=== PATIENT | female | born 1945 | race Caucasian/White ===

== ENCOUNTER 2019-01-28 11:31 | Emergency (ER) | payer MEDICARE ==
[2019-01-28 11:44] VITALS: BP 124/70
--- NOTE | 2019-01-28 12:16 | UC ---
Shortness of Breath HPI - HPI Summary HPI Summary: 73 yo female with dyspnea x 2 days markedly worse with exertion no CP hx lymphoma - History of Current Complaint Chief Complaint: UCRespiratory Stated Complaint: SOB,WEAK Time Seen by Provider: 01/28/19 11:50 Hx Obtained From: Patient Onset/Duration: Gradual Onset, Lasting Days Timing: Constant Current Severity: Mild Dyspnea At: Exertion - sever Alleviating Factors: Other - rest - Allergy/Home Medications Allergies/Adverse Reactions: Allergies Allergy/AdvReac Type Severity Reaction Status Date / Time aspirin Allergy See Comment Verified 01/28/19 11:39 Sulfa (Sulfonamide Allergy Hives Verified 01/28/19 11:39 Antibiotics) Home Medications: Home Medications Acetaminophen TAB* [Tylenol TAB*] 325 mg PO Q4H PRN 01/28/19 [History Confirmed 01/28/19] Bee Pollen 550 mg PO DAILY 01/28/19 [History Confirmed 01/28/19] Megestrol TAB* [Megace TAB*] 80 mg PO QID 01/28/19 [History Confirmed 01/28/19] Vitamin THERAPEUTIC TAB* [Theragran TAB*] 1 tab PO DAILY 01/28/19 [History Confirmed 01/28/19] PMH/Surg Hx/FS Hx/Imm Hx Previously Healthy: Yes Cardiovascular History: Hypertension Cancer History: Other Other Cancer History: lymphoma and uterine - Surgical History Surgical History: Yes Surgery Procedure, Year, and Place: Hysterectomy complete 2013. D&C August 2014 - Social History Alcohol Use: Occasionally Substance Use Type: None Smoking Status (MU): Never Smoked Tobacco Review of Systems All Other Systems Reviewed And Are Negative: Yes Constitutional: Positive: Negative Skin: Positive: Negative Eyes: Positive: Negative ENT: Positive: Negative Respiratory: Positive: Shortness Of Breath Cardiovascular: Positive: Negative Gastrointestinal: Positive: Negative Genitourinary: Positive: Negative Motor: Positive: Negative Neurovascular: Positive: Negative Musculoskeletal: Positive: Negative Neurological: Positive: Negative Psychological: Positive: Negative Physical Exam Triage Information Reviewed: Yes Appearance: Well-Appearing, No Pain Distress, Well-Nourished Vital Signs: Initial Vital Signs Temp 97.7 F 01/28/19 11:36 Pulse 98 01/28/19 11:36 Resp 26 01/28/19 11:36 BP 124/70 01/28/19 11:36 Pulse Ox 98 01/28/19 11:36 Vital Signs Reviewed: Yes Eyes: Positive: Conjunctiva Clear ENT: Positive: Hearing grossly normal. Negative: Nasal congestion, Nasal drainage, Trismus, Muffled voice Neck: Positive: Supple, Nontender, No Lymphadenopathy Respiratory: Positive: Decreased breath sounds - right Cardiovascular: Positive: RRR, No Murmur, Tachycardia Musculoskeletal: Positive: ROM Intact, No Edema Neurological: Positive: Alert Psychological Exam: Normal Skin Exam: Normal Diagnostics - Radiology No standard instances Radiology Interpretation Completed By: Radiologist Summary of Radiographic Findings: lg right pleural effusion - EKG Cardiac Rate: Tachycardia Cardiac Rhythm: Sinus: Normal Ectopy: None ST Segment: Normal Shortness of Breath Dx - Course Course Of Treatment: d/w Kahlil Salas NP. to ER via POV. pt declines EMS - Differential Dx/Diagnosis Provider Diagnosis: Pleural effusion, right Discharge - Sign-Out/Discharge Documenting (check all that apply): Patient Departure All imaging exams completed and their final reports reviewed: Yes - Discharge Plan Condition: Stable Disposition: TRANS HIGHER LVL OF CARE FAC Referrals: No Primary Care Phys,NOPCP [Primary Care Provider] - Additional Instructions: TO [facility] they are expecting you - Billing Disposition and Condition Condition: STABLE Disposition: Trans Higher Lvl of Care Fac
== END 2019-01-28 12:33 | disposition short-term general hospital (02) ==
LOC: UCCORT 11:31
DX: J90 Pleural effusion, not elsewhere classified (principal); I10 Essential (primary) hypertension; Z88.8 Allergy status to other drugs, medicaments and biological substances; Z88.2 Allergy status to sulfonamides
CPT/HCPCS: 71046; 93005; 99212; G0463